=== PATIENT | female | born 1970 | race Caucasian/White ===

== ENCOUNTER → 2022-02-03 | Outpatient (CLI) | payer BC | LOC: M RAD 14:39 | PROVIDERS: ATTEND Nurse Practitioner Family | DX: I67.1 Cerebral aneurysm, nonruptured (principal); M50.21 Other cervical disc displacement, high cervical region; M50.221 Other cervical disc displacement at C4-C5 level; M50.222 Other cervical disc displacement at C5-C6 level; M50.223 Other cervical disc displacement at C6-C7 level; M50.23 Other cervical disc displacement, cervicothoracic region; M47.814 Spondylosis without myelopathy or radiculopathy, thoracic region; M47.812 Spondylosis without myelopathy or radiculopathy, cervical region ==

== ENCOUNTER → 2024-07-02 | Outpatient (CLI) | payer BC | LOC: M RAD 08:45 | PROVIDERS: ATTEND Student in an Organized Health Care Education/Training Program | DX: M25.552 Pain in left hip (principal); M46.1 Sacroiliitis, not elsewhere classified ==